=== PATIENT | male | born 1990 | race Caucasian/White ===

== ENCOUNTER 2019-01-20 03:45 | Emergency (ER) | payer OTHER | END 2019-01-20 09:47 | disposition home or self-care (01) | LOC: JER 03:45 ==

== ENCOUNTER 2020-08-01 01:32 | Emergency (ER) | payer OTHER ==
[2020-08-01 01:44] VITALS: BMI 29.9
[2020-08-01] MEDS ORDERED: SODIUM CHLORIDE 0.9% 500 ML INFUS.BAG IV ONE (01:52)
[2020-08-01] MEDS ORDERED: ACETAMINOPHEN 325 MG TABLET (FP) PO ONE (01:53)
[2020-08-01] MEDS ORDERED: KETOROLAC TROMETHAMINE 30 MG/1 ML VIAL IVPUSH ONE (01:53)
[2020-08-01] MEDS ORDERED: ONDANSETRON 4 MG/2 ML VIAL ONE (02:02)
[2020-08-01] MEDS ORDERED: FAMOTIDINE 20 MG/50 ML IVPB 0 MG/0 ML MG IVPB ONE (02:02)
[2020-08-01] MEDS ORDERED: ACETAMINOPHEN 325 MG TABLET (FP) ONE (02:14)
[2020-08-01] MEDS ORDERED: KETOROLAC TROMETHAMINE 30 MG/1 ML VIAL ONE (02:14)
[2020-08-01 02:28] LABS: EPI CELLS 7 /uL (0-25.1); HYALINE CASTS 1 /uL (0-3.1); URINE APPEARANCE CLEAR; URINE BACTERIA 122 /uL (0-1359); URINE BILIRUBIN NEGATIVE (NEGATIVE); URINE COLOR YELLOW; URINE GLUCOSE (UA) NEGATIVE (NEGATIVE); URINE KETONE NEGATIVE (NEGATIVE); URINE LEUK ESTERASE NEGATIVE (NEGATIVE); URINE NITRITE NEGATIVE (NEGATIVE); URINE PROTEIN TRACE (NEGATIVE); URINE RBC 181 /uL (0-23.9); URINE UROBILINOGEN 0.2 mg/dL (0.2-1.0); URINE WBC 18 /uL (0-25.8)
[2020-08-01 03:07] LABS: BASO % 0.6 % (0-2.0); EOS % 3.2 % (0-4.5); HEMATOCRIT 44.4 % (35.4-49); HEMOGLOBIN 14.8 GM/dL (11.7-16.9); LYMPH % 52.6 % (8-40); MCH 28.7 pg (25.7-33.7); MCHC 33.4 g/dl (32.0-35.9); MEAN CELL VOLUME 85.8 fl (80-96); MEAN PLT VOLUME 9.2 fl (7.5-11.1); MONO % 9.1 % (3.8-10.2); NEUT % 34.5 % (42.8-82.8); PLATELET COUNT 208 K/MM3 (134-434); RBC 5.18 M/mm3 (4.00-5.60); RDW 15.2 % (11.9-15.9); WHITE BLOOD COUNT 4.7 K/mm3 (4.0-10.0)
[2020-08-01 03:10] LABS: CALCIUM 9.1 mg/dL (8.5-10.1)
[2020-08-01 03:11] LABS: ALBUMIN 4.2 g/dl (3.4-5.0); BLOOD UREA NITROGEN 12.2 mg/dL (7-18)
[2020-08-01 03:14] LABS: CREATININE 1.4 mg/dL (0.55-1.3)
[2020-08-01 03:16] LABS: BILIRUBIN,TOTAL 0.4 mg/dL (0.2-1)
[2020-08-01 03:36] LABS: INR 0.98 (0.83-1.09); PROTHROMBIN TIME (PATIENT) 11.9 SEC (9.7-13.0)
[2020-08-01 04:04] VITALS: BP 134/82; PULSE 76; TEMP 98.3
== END 2020-08-01 04:04 | disposition home or self-care (01) ==
LOC: JER 01:32
PROC: 3E033GC Introduction of Other Therapeutic Substance into Peripheral Vein, Percutaneous Approach (ICD-10-PCS; principal; 2020-08-01)
PROC: 3E0333Z Introduction of Anti-inflammatory into Peripheral Vein, Percutaneous Approach (ICD-10-PCS; 2020-08-01)
PROC: 3E033GC Introduction of Other Therapeutic Substance into Peripheral Vein, Percutaneous Approach (ICD-10-PCS; 2020-08-01)
DX: R10.9 Unspecified abdominal pain (principal); N20.1 Calculus of ureter
CPT/HCPCS: 36415; 74176-TC; 80053; 81003; 85025; 85610; 99284-25

== ENCOUNTER 2020-08-18 11:09 | Emergency (ER) | payer OTHER ==
[2020-08-18 11:22] VITALS: BP 137/89; PULSE 75; TEMP 98; BMI 30.7
[2020-08-18 12:33] LABS: PH,URINE 5.5 (5.0-8.0); URINE APPEARANCE CLEAR; URINE BILIRUBIN NEGATIVE (NEGATIVE); URINE COLOR YELLOW; URINE GLUCOSE (UA) NEGATIVE (NEGATIVE); URINE KETONE NEGATIVE (NEGATIVE); URINE LEUK ESTERASE NEGATIVE (NEGATIVE); URINE NITRITE NEGATIVE (NEGATIVE); URINE PROTEIN NEGATIVE (NEGATIVE); URINE UROBILINOGEN 0.2 mg/dL (0.2-1.0)
[2020-08-18 13:56] LABS: BASO % 1.4 % (0-2.0); EOS % 3.5 % (0-4.5); HEMATOCRIT 45.7 % (35.4-49); HEMOGLOBIN 15.5 GM/dL (11.7-16.9); LYMPH % 48.4 % (8-40); MCHC 33.9 g/dl (32.0-35.9); MEAN CELL VOLUME 85.5 fl (80-96); MEAN PLT VOLUME 8.5 fl (7.5-11.1); MONO % 8.6 % (3.8-10.2); NEUT % 38.1 % (42.8-82.8); PLATELET COUNT 208 K/MM3 (134-434); RBC 5.34 M/mm3 (4.00-5.60); WHITE BLOOD COUNT 4.3 K/mm3 (4.0-10.0)
[2020-08-18 14:14] LABS: POTASSIUM 4.6 mmol/L (3.5-5.1)
[2020-08-18 14:16] LABS: BLOOD UREA NITROGEN 10.6 mg/dL (7-18); CALCIUM 9.4 mg/dL (8.5-10.1)
[2020-08-18 14:20] LABS: CREATININE 1.2 mg/dL (0.55-1.3)
== END 2020-08-18 14:41 | disposition home or self-care (01) ==
LOC: JER 11:09 → JERFT 11:09 → JER 14:41
DX: R30.0 Dysuria (principal)
CPT/HCPCS: 36415; 74018-TC-FY; 76775-TC; 80048; 81003; 85025; 87086; 87491; 87591; 99285-25

== ENCOUNTER 2020-08-19 07:50 | Emergency (ER) | payer OTHER ==
[2020-08-19 08:08] VITALS: TEMP 98.1; BMI 30.7
[2020-08-19] MEDS ORDERED: SODIUM CHLORIDE 1,000 ML IV STA (08:56)
[2020-08-19] MEDS ORDERED: KETOROLAC TROMETHAMINE 30 MG/1 ML VIAL IVPUSH ONE (08:56)
[2020-08-19] MEDS ORDERED: KETOROLAC TROMETHAMINE 30 MG/1 ML VIAL ONE (09:16)
[2020-08-19 09:47] LABS: BASO % 0.9 % (0-2.0); EOS % 4.6 % (0-4.5); HEMATOCRIT 46.1 % (35.4-49); HEMOGLOBIN 15.6 GM/dL (11.7-16.9); LYMPH % 40.8 % (8-40); MCH 28.9 pg (25.7-33.7); MCHC 33.8 g/dl (32.0-35.9); MEAN CELL VOLUME 85.6 fl (80-96); MEAN PLT VOLUME 8.9 fl (7.5-11.1); MONO % 6.9 % (3.8-10.2); NEUT % 46.8 % (42.8-82.8); PLATELET COUNT 217 K/MM3 (134-434); RBC 5.39 M/mm3 (4.00-5.60); WHITE BLOOD COUNT 3.9 K/mm3 (4.0-10.0)
[2020-08-19 10:01] LABS: ALBUMIN 4.5 g/dl (3.4-5.0); CALCIUM 9.1 mg/dL (8.5-10.1)
[2020-08-19 10:02] LABS: BLOOD UREA NITROGEN 10.2 mg/dL (7-18)
[2020-08-19 10:05] LABS: CREATININE 1.3 mg/dL (0.55-1.3)
[2020-08-19 10:06] LABS: BILIRUBIN,TOTAL 0.8 mg/dL (0.2-1); TOT PROT 8.4 g/dl (6.4-8.2)
[2020-08-19 10:35] LABS: EPI CELLS 8 /uL (0-25.1); HYALINE CASTS 0 /uL (0-3.1); PH,URINE 5.5 (5.0-8.0); URINE APPEARANCE CLEAR; URINE BACTERIA 14 /uL (0-1359); URINE BILIRUBIN NEGATIVE (NEGATIVE); URINE COLOR YELLOW; URINE GLUCOSE (UA) NEGATIVE (NEGATIVE); URINE KETONE NEGATIVE (NEGATIVE); URINE LEUK ESTERASE NEGATIVE (NEGATIVE); URINE NITRITE NEGATIVE (NEGATIVE); URINE PROTEIN NEGATIVE (NEGATIVE); URINE RBC 6 /uL (0-23.9); URINE UROBILINOGEN 0.2 mg/dL (0.2-1.0); URINE WBC 6 /uL (0-25.8)
[2020-08-19 12:07] VITALS: BP 122/78; PULSE 66
== END 2020-08-19 12:08 | disposition home or self-care (01) ==
LOC: JER 07:50
PROC: 3E033NZ Introduction of Analgesics, Hypnotics, Sedatives into Peripheral Vein, Percutaneous Approach (ICD-10-PCS; principal; 2020-08-19)
PROC: 3E0337Z Introduction of Electrolytic and Water Balance Substance into Peripheral Vein, Percutaneous Approach (ICD-10-PCS; 2020-08-19)
DX: N20.0 Calculus of kidney (principal)
CPT/HCPCS: 36415; 80053; 81003; 85025; 99285-25

== ENCOUNTER 2020-08-28 10:56 | Emergency (ER) | payer OTHER ==
[2020-08-28 11:04] VITALS: BP 149/73; PULSE 100; TEMP 98.1; BMI 29.9
[2020-08-28] MEDS ORDERED: SODIUM CHLORIDE 0.9% 500 ML INFUS.BAG IV ONE ×2 (11:48→14:24)
[2020-08-28] MEDS ORDERED: KETOROLAC TROMETHAMINE 30 MG/1 ML VIAL IVPUSH ONE (11:48)
[2020-08-28] MEDS ORDERED: ONDANSETRON 4 MG/2 ML VIAL IVPUSH ONE (11:48)
[2020-08-28] MEDS ORDERED: morphine CARPU-JECT 4 MG/1 ML DISP.SYRIN IVPUSH ONE (11:49)
[2020-08-28] MEDS ORDERED: KETOROLAC TROMETHAMINE 30 MG/1 ML VIAL ONE (11:59)
[2020-08-28] MEDS ORDERED: ONDANSETRON 4 MG/2 ML VIAL ONE (11:59)
[2020-08-28] MEDS ORDERED: morphine SULFATE 4 MG/ML VIAL ONE (11:59)
[2020-08-28 12:16] LABS: EOS % 3.6 % (0-4.5); EPI CELLS 1 /uL (0-25.1); HEMATOCRIT 45.6 % (35.4-49); HEMOGLOBIN 15.2 GM/dL (11.7-16.9); HYALINE CASTS 0 /uL (0-3.1); LYMPH % 48.4 % (8-40); MCH 28.6 pg (25.7-33.7); MCHC 33.3 g/dl (32.0-35.9); MEAN CELL VOLUME 85.9 fl (80-96); MEAN PLT VOLUME 9.1 fl (7.5-11.1); MONO % 7.6 % (3.8-10.2); NEUT % 39.4 % (42.8-82.8); PLATELET COUNT 182 K/MM3 (134-434); URINE APPEARANCE CLEAR; URINE BACTERIA 22 /uL (0-1359); URINE BILIRUBIN NEGATIVE (NEGATIVE); URINE COLOR YELLOW; URINE GLUCOSE (UA) NEGATIVE (NEGATIVE); URINE KETONE NEGATIVE (NEGATIVE); URINE LEUK ESTERASE NEGATIVE (NEGATIVE); URINE NITRITE NEGATIVE (NEGATIVE); URINE PROTEIN NEGATIVE (NEGATIVE); URINE RBC 4 /uL (0-23.9); URINE UROBILINOGEN 0.2 mg/dL (0.2-1.0); URINE WBC 2 /uL (0-25.8); WHITE BLOOD COUNT 4.9 K/mm3 (4.0-10.0)
[2020-08-28 12:26] LABS: ALBUMIN 4.6 g/dl (3.4-5.0); CALCIUM 9.4 mg/dL (8.5-10.1)
[2020-08-28 12:27] LABS: BLOOD UREA NITROGEN 12.7 mg/dL (7-18)
[2020-08-28 12:30] LABS: CREATININE 1.5 mg/dL (0.55-1.3)
[2020-08-28 12:31] LABS: BILIRUBIN,TOTAL 0.6 mg/dL (0.2-1); TOT PROT 8.5 g/dl (6.4-8.2)
[2020-08-28 16:02] LABS: CREATININE 1.5 mg/dL (0.55-1.3)
== END 2020-08-28 16:59 | disposition home or self-care (01) ==
LOC: JERFT 10:56
PROC: 3E0333Z Introduction of Anti-inflammatory into Peripheral Vein, Percutaneous Approach (ICD-10-PCS; principal; 2020-08-28)
PROC: 3E033NZ Introduction of Analgesics, Hypnotics, Sedatives into Peripheral Vein, Percutaneous Approach (ICD-10-PCS; 2020-08-28)
PROC: 3E033GC Introduction of Other Therapeutic Substance into Peripheral Vein, Percutaneous Approach (ICD-10-PCS; 2020-08-28)
DX: R10.9 Unspecified abdominal pain (principal)
CPT/HCPCS: 36415; 76775-TC; 80053; 81003; 82565; 85025; 87086; 99284-25

== ENCOUNTER 2020-09-29 16:25 | Emergency (ER) | payer OTHER ==
[2020-09-29 16:32] VITALS: TEMP 97.9; BMI 29.9
[2020-09-29] MEDS ORDERED: KETOROLAC TROMETHAMINE 30 MG/1 ML VIAL IVPUSH ONE (17:03)
[2020-09-29] MEDS ORDERED: ACETAMINOPHEN 1000 MG/100 ML VIAL (NON FORMULARY) IVPB ONE (17:03)
[2020-09-29] MEDS ORDERED: ACETAMINOPHEN INJECTION 100 ML IVPB ONE (18:06)
[2020-09-29] MEDS ORDERED: KETOROLAC TROMETHAMINE 30 MG/1 ML VIAL ONE (18:06)
[2020-09-29 19:23] LABS: BASO % 0.4 % (0-2.0); EOS % 0.5 % (0-4.5); HEMATOCRIT 43.4 % (35.4-49); HEMOGLOBIN 14.6 GM/dL (11.7-16.9); MCH 28.8 pg (25.7-33.7); MCHC 33.7 g/dl (32.0-35.9); MEAN CELL VOLUME 85.3 fl (80-96); MEAN PLT VOLUME 10.3 fl (7.5-11.1); MONO % 9.9 % (3.8-10.2); NEUT % 69.2 % (42.8-82.8); PLATELET COUNT 187 K/MM3 (134-434); RBC 5.08 M/mm3 (4.00-5.60); RDW 14.8 % (11.9-15.9); WHITE BLOOD COUNT 7.5 K/mm3 (4.0-10.0)
[2020-09-29 19:52] LABS: POTASSIUM 3.9 mmol/L (3.5-5.1)
[2020-09-29 19:53] LABS: BLOOD UREA NITROGEN 12.8 mg/dL (7-18)
[2020-09-29 19:54] LABS: EPI CELLS 6 /uL (0-25.1); HYALINE CASTS 5 /uL (0-3.1); PH,URINE 5.5 (5.0-8.0); URINE APPEARANCE CLEAR; URINE BACTERIA 64 /uL (0-1359); URINE BILIRUBIN NEGATIVE (NEGATIVE); URINE COLOR YELLOW; URINE GLUCOSE (UA) NEGATIVE (NEGATIVE); URINE KETONE NEGATIVE (NEGATIVE); URINE LEUK ESTERASE NEGATIVE (NEGATIVE); URINE NITRITE NEGATIVE (NEGATIVE); URINE PROTEIN TRACE (NEGATIVE); URINE RBC 474 /uL (0-23.9); URINE UROBILINOGEN 0.2 mg/dL (0.2-1.0); URINE WBC 11 /uL (0-25.8)
[2020-09-29 19:55] LABS: CALCIUM 9.3 mg/dL (8.5-10.1)
[2020-09-29 19:56] LABS: ALBUMIN 4.7 g/dl (3.4-5.0)
[2020-09-29 20:00] LABS: BILIRUBIN,TOTAL 0.6 mg/dL (0.2-1)
[2020-09-29 20:05] LABS: CREATININE 1.7 mg/dL (0.55-1.3)
[2020-09-29 20:06] LABS: TOT PROT 8.7 g/dl (6.4-8.2)
[2020-09-29] MEDS ORDERED: SODIUM CHLORIDE 0.9% 500 ML INFUS.BAG IV ONE (20:08)
[2020-09-29 23:14] VITALS: BP 133/82; PULSE 77
== END 2020-09-29 23:00 | disposition home or self-care (01) ==
LOC: JER 16:25
PROC: 3E033GC Introduction of Other Therapeutic Substance into Peripheral Vein, Percutaneous Approach (ICD-10-PCS; principal; 2020-09-29)
DX: N20.1 Calculus of ureter (principal)
CPT/HCPCS: 36415; 74176-TC; 80053; 81003; 85025; 99285-25; J0131

== ENCOUNTER 2020-10-06 17:26 | Emergency (ER) | payer OTHER ==
[2020-10-06 17:33] VITALS: BMI 29.9
[2020-10-06] MEDS ORDERED: LACTATED RINGERS SOLUTION 1000 ML INFUS.BAG IV ONE (19:37)
[2020-10-06] MEDS ORDERED: KETOROLAC TROMETHAMINE 30 MG/1 ML VIAL IVPUSH ONE (19:37)
[2020-10-06] MEDS ORDERED: KETOROLAC TROMETHAMINE 30 MG/1 ML VIAL ONE (19:56)
[2020-10-06 21:29] LABS: BASO % 0.5 % (0-2.0); EOS % 1.7 % (0-4.5); HEMOGLOBIN 14.8 GM/dL (11.7-16.9); LYMPH % 33.6 % (8-40); MCH 28.6 pg (25.7-33.7); MCHC 33.5 g/dl (32.0-35.9); MEAN CELL VOLUME 85.3 fl (80-96); MEAN PLT VOLUME 9.6 fl (7.5-11.1); NEUT % 53.2 % (42.8-82.8); PLATELET COUNT 199 K/MM3 (134-434); RBC 5.16 M/mm3 (4.00-5.60); RDW 14.7 % (11.9-15.9); WHITE BLOOD COUNT 6.1 K/mm3 (4.0-10.0)
[2020-10-06 21:51] LABS: CALCIUM 9.1 mg/dL (8.5-10.1); POTASSIUM 4.2 mmol/L (3.5-5.1)
[2020-10-06 21:53] LABS: ALBUMIN 4.5 g/dl (3.4-5.0); BLOOD UREA NITROGEN 14.4 mg/dL (7-18)
[2020-10-06 21:56] LABS: CREATININE 1.6 mg/dL (0.55-1.3)
[2020-10-06 21:57] LABS: BILIRUBIN,TOTAL 0.4 mg/dL (0.2-1); TOT PROT 8.5 g/dl (6.4-8.2)
[2020-10-06 22:01] LABS: EPI CELLS 1 /uL (0-25.1); HYALINE CASTS 0 /uL (0-3.1); URINE APPEARANCE CLEAR; URINE BACTERIA 14 /uL (0-1359); URINE BILIRUBIN NEGATIVE (NEGATIVE); URINE COLOR YELLOW; URINE GLUCOSE (UA) NEGATIVE (NEGATIVE); URINE KETONE NEGATIVE (NEGATIVE); URINE LEUK ESTERASE NEGATIVE (NEGATIVE); URINE NITRITE NEGATIVE (NEGATIVE); URINE PROTEIN NEGATIVE (NEGATIVE); URINE RBC 1 /uL (0-23.9); URINE UROBILINOGEN 0.2 mg/dL (0.2-1.0); URINE WBC 2 /uL (0-25.8)
[2020-10-06] MEDS ORDERED: DOXYCYCLINE HYCLATE 100 MG CAPSULE PO ONE (22:42)
[2020-10-06] MEDS ORDERED: PENICILLIN G BENZATHINE 2,400,000 UNIT/4 ML PFS IM ONE (22:42)
[2020-10-06] MEDS ORDERED: PENICILLIN G BENZATHINE 2,400,000 UNIT/4 ML PFS ONE (22:47)
[2020-10-06 22:58] LABS: SYPHILIS W/ RPR CONF NON-REACTIVE (NONREACTIVE)
[2020-10-06 23:27] LABS: HIV INTERPRETATION NEGATIVE (NEGATIVE)
[2020-10-06 23:49] VITALS: BP 133/86; PULSE 75; TEMP 98.6
== END 2020-10-06 23:50 | disposition home or self-care (01) ==
LOC: JER 17:26
PROC: 3E0333Z Introduction of Anti-inflammatory into Peripheral Vein, Percutaneous Approach (ICD-10-PCS; principal; 2020-10-06)
PROC: 3E02329 Introduction of Other Anti-infective into Muscle, Percutaneous Approach (ICD-10-PCS; 2020-10-06)
DX: R10.9 Unspecified abdominal pain (principal); N50.9 Disorder of male genital organs, unspecified; N20.0 Calculus of kidney
CPT/HCPCS: 36415; 76775-TC; 80053; 81003; 85025; 86780; 87086; 87389; 87491; 87591; 99284-25